=== PATIENT | male | born 1945 | race Caucasian/White ===

== ENCOUNTER 2020-12-08 08:56 | Outpatient (CLI) | payer MEDICARE, MEDICAID | END 2020-12-08 08:57 | disposition critical access hospital (66) | LOC: EMS 08:56 | DX: R10.31 Right lower quadrant pain (principal) | CPT/HCPCS: A0425; A0429 ==

== ENCOUNTER 2020-12-08 09:12 | Emergency (ER) | payer MEDICARE, MEDICAID ==
--- NOTE | 2020-12-08 09:38 | ED Physician Documentation ---
PD HPI ABD PAIN - Stated complaint Stated Complaint: GROIN PX - History obtained from History obtained from: Patient, EMS - History of Present Illness Timing - onset: How many days ago (report from caregivers that he has complained of right inguinal pain intermittently for days. No vomiting.) Timing - duration: Days (several days, up to a week.) Timing - details: Intermittant Quality: Cramping, Aching, Pain Location: RLQ (right inguinal area) Radiation: No: Right flank Worsened by: Moving, Position (bending and lifting). No: Breathing Associated symptoms: No: Fever, Nausea, Vomiting, Diarrhea Recently seen: Not recently seen Review of Systems Unable to obtain: Dementia (but able to answer questions in the moment.), Other (info through EMS from care facility) Constitutional: denies: Fever, Chills Cardiac: denies: Chest pain / pressure Respiratory: denies: Cough GI: denies: Abdominal Pain, Vomiting, Constipation, Diarrhea : denies: Dysuria PD PAST MEDICAL HISTORY - Past Medical History Cardiovascular: None Respiratory: None Neuro: Dementia - Present Medications Home Medications: Ambulatory Orders Medication Instructions Recorded Confirmed Docusate Sodium 100Mg Capsule 100 mg PO DAILY #20 cap 12/08/20 [Colace 100Mg Capsule] Meloxicam [Mobic] 7.5 mg PO BID PRN #20 tablet 12/08/20 - Allergies Allergies/Adverse Reactions: Allergies Allergy/AdvReac Type Severity Reaction Status Date / Time memantine [From Namenda] Allergy Unknown Verified 12/08/20 09:40 PD ED PE NORMAL - Vitals Vital signs reviewed: Yes - General General: No acute distress, Well developed/nourished. No: Alert and oriented X 3 (alert adn conversant. Oriented to person and place. Not time. ) - Neck Neck: Supple, no meningeal sign, No adenopathy - Cardiac Cardiac: RRR, No murmur - Respiratory Respiratory: Clear bilaterally - Abdomen Abdomen: Normal bowel sounds, Soft, Non distended, No organomegaly, Other (right inguinal tender. Hernia defect in inguinal canal. Protrusion with tightening abdomen. Reduces when relaxes. No feeling of incarceration. ) - Male Male : Other (mild fullness right scrotal area without tenderness. Normal lie of testicles. ) - Back Back: No CVA TTP - Derm Derm: Normal color, Warm and dry Results - Vitals Vitals: Vital Signs - 24 hr 12/08/20 12/08/20 09:36 10:02 Temperature 36.4 C L Heart Rate 74 78 Respiratory 16 19 Rate Blood Pressure 151/80 H 157/108 H O2 Saturation 99 99 Oxygen O2 Source Room air - Labs Labs: Laboratory Tests 12/08/20 12/08/20 12/08/20 09:55 09:55 09:55 WBC 7.3 RBC 3.95 L Hgb 12.6 L Hct 38.0 L MCV 96.2 H MCH 31.9 H MCHC 33.2 RDW 13.2 Plt Count 203 MPV 8.2 Neut # (Auto) 5.3 Lymph # (Auto) 1.2 L [place] # (Auto) 0.6 Eos # (Auto) 0.2 Baso # (Auto) 0.0 Absolute Nucleated RBC 0.00 Nucleated RBC % 0.0 Sodium 141 Potassium 3.8 Chloride 104 Carbon Dioxide 30 Anion Gap 7.0 BUN 14 Creatinine 1.0 Estimated GFR (MDRD) 72 L Glucose 88 Calcium 9.5 Total Bilirubin 0.7 AST 18 ALT 17 Alkaline Phosphatase 71 Total Protein 6.8 Albumin 4.0 Globulin 2.8 Albumin/Globulin Ratio 1.4 Lipase 48 Urine Color YELLOW Urine Clarity CLEAR Urine pH 7.0 Ur Specific [place] 1.015 Urine Protein NEGATIVE Urine Glucose (UA) NEGATIVE Urine Ketones NEGATIVE Urine Occult Blood NEGATIVE Urine Nitrite NEGATIVE Urine Bilirubin NEGATIVE Urine Urobilinogen 0.2 (NORMAL) Ur Leukocyte Esterase NEGATIVE Ur Microscopic Review NOT INDICATED Urine Culture Comments NOT INDICATED - Rads (name of study) abd/p[elvic CT Radiology: Prelim report reviewed (hydrocele right. No other acute noted. ), See rad report PD MEDICAL DECISION MAKING - ED course Complexity details: reviewed results (abd CT showing hydrocele. No report of hernia, though I think I see some hernia soft tissue mass right inguinal. No incarceration. ), considered differential (right inguinal tenderness and feeling of hernia with abd tightening. No incarceration. ), d/w patient Departure - Departure Disposition: 01 Home, Self Care Clinical Impression: Right inguinal pain Inguinal hernia Qualifiers: Obstruction and gangrene presence: without obstruction or gangrene Laterality: unilateral Recurrence: non-recurrent Qualified Code(s): K40.90 - Unilateral inguinal hernia, without obstruction or gangrene, not specified as recurrent Condition: Stable Record reviewed to determine appropriate education?: Yes Instructions: ED Hernia Inguinal Follow-Up: Lori Mcclure MD [Provider Admit Priv/Credential] - Fantasma Chavez MD [Provider Admit Priv/Credential] - Prescriptions: Docusate Sodium 100Mg Capsule [Colace 100Mg Capsule] 100 mg PO DAILY #20 cap Meloxicam [Mobic] 7.5 mg PO BID PRN #20 tablet PRN Reason: Pain Comments: Your tenderness and pain seem to relate to an inguinal hernia. It is not trapped nor causing any obstruction. CT scan did not show any other acute abnormalities to account for hurting. Incidentally there is a small fluid collection around the testicle but that is not the area that you are hurting. Typically we use a stool softener to ensure easy stool without having to push. Avoid heavy lifting. Anti-inflammatory twice daily for a week to reduce any inflammation/pain associated with this right now. Follow-up with local surgeon for discussion of repair of the hernia, call for an appointment. [place] Discharge Date/Time: 12/08/20 15:47
[2020-12-08 10:03] VITALS: BP 157/108
[2020-12-08 10:07] LABS: BASOPHILS % (AUTO) 0.4 %; EOSINOPHILS # (AUTO) 0.2 10^3/uL (0.0-0.7); EOSINOPHILS % (AUTO) 3.3 %; HGB - HEMOGLOBIN 12.6 g/dL (14.0-18.0); LYMPHOCYTES # (AUTO) 1.2 10^3/uL (1.5-3.5); LYMPHOCYTES % (AUTO) 15.7 %; MEAN CORPUSCULAR HEMOGLOBIN 31.9 pg (27.0-31.0); MEAN CORPUSCULAR HGB CONC 33.2 g/dL (32.0-36.0); MEAN CORPUSCULAR VOLUME 96.2 fL (80.0-94.0); MEAN PLATELET VOLUME 8.2 fL (7.4-11.4); MONOCYTES # (AUTO) 0.6 10^3/uL (0.0-1.0); MONOCYTES % (AUTO) 8.3 %; NEUTROPHILS # (AUTO) 5.3 10^3/uL (1.5-6.6); NEUTROPHILS % (AUTO) 71.6 %; PLT - PLATELET COUNT 203 10^3/uL (130-450); RED BLOOD COUNT 3.95 10^6/uL (4.70-6.10); RED CELL DISTRIBUTION WIDTH 13.2 % (12.0-15.0); WHITE BLOOD COUNT 7.3 x10^3/uL (4.8-10.8)
[2020-12-08 10:08] LABS: BILIRUBIN,URINE NEGATIVE (NEGATIVE); CLARITY,URINE CLEAR (CLEAR); GLUCOSE, URINE (UA) NEGATIVE (NEGATIVE); KETONES,URINE (UA) NEGATIVE (NEGATIVE); LEUKOCYTE ESTERASE, URINE NEGATIVE (NEGATIVE); NITRITE,URINE NEGATIVE (NEGATIVE); OCCULT BLOOD,URINE NEGATIVE (NEGATIVE); PROTEIN,URINE NEGATIVE (NEGATIVE); UROBILINOGEN,URINE 0.2 (NORMAL) E.U./dL (NORMAL)
[2020-12-08 10:21] LABS: ALBUMIN/GLOBULIN RATIO 1.4 (1.0-2.2); BILIRUBIN,TOTAL 0.7 mg/dL (0.2-1.0); CALCIUM 9.5 mg/dL (8.5-10.3); POTASSIUM 3.8 mmol/L (3.5-5.0); TOTAL PROTEIN 6.8 g/dL (6.7-8.2)
[2020-12-08] MEDS ORDERED: KETOROLAC 30 MG/ML VIAL IVP STA (10:30)
[2020-12-08] MEDS ORDERED: IOVERSOL 320 100 ML VIAL IVP ONE ×2 (10:56→11:24)
--- NOTE | 2020-12-08 12:01 | CT Report ---
PROCEDURE: Abdomen/Pelvis W INDICATIONS: lower abd pain for 2-3 days CONTRAST: IV CONTRAST: Optiray 320 ml: 100 PO CONTRAST: *NO PO CONTRAST TECHNIQUE: After the administration of IV contrast, 5 mm thick sections acquired from the diaphragms to the symp hysis. 5 mm thick coronal and sagittal reformats were acquired. For radiation dose reduction, the f ollowing was used: automated exposure control, adjustment of mA and/or kV according to patient size. COMPARISON: None. FINDINGS: Image quality: Diagnostic. Respiratory motion is noted.. ABDOMEN: Lung bases: Dependent atelectasis in posterior aspect of bilateral lung blake are seen. Heart size i s normal. Moderate atherosclerotic calcifications are seen in coronary vessels and descending thoraci c aorta. Solid organs: Liver and spleen are normal in size and enhancement. Gallbladder is within normal aponte its. Biliary system is non dilated. Pancreas is normal in size. 2 x 2 CM hypodense area involving pa ncreatic tail is seen series 13 image 33 and series 6 image 24. No peripancreatic fat stranding or fl uid collection. Rest of the pancreas enhances normally. No adrenal nodules. Kidneys demonstrate norm al size and enhancement, without hydronephrosis. Peritoneum and bowel: There is no evidence of bowel obstruction. No gross abnormal bowel wall thicken ing or mesenteric fat stranding. No free fluid or free air. Colonic diverticulosis is seen, no CT keyla dence of acute diverticulitis. Nodes and vessels: No retroperitoneal or mesenteric adenopathy by size criteria. Aorta and inferior vena cava are normal in size. Miscellaneous: No ventral hernias. PELVIS: Genitourinary: Bladder wall thickness is normal. Moderate size right hydrocele is seen. No gross abn ormality is seen in peritoneal space. Miscellaneous: No inguinal hernias or adenopathy. Bones: No suspicious bony lesions. No vertebral body compression fractures. Post fusion changes ar e noted in lower lumbar spine at L4-S1 levels. Grade 1 anterolisthesis of L5 on S1 is seen. IMPRESSION: 1. No bowel obstruction or abnormal bowel wall thickening. Colonic diverticulosis without evidence of acute diverticulitis. No abscess collection. No free fluid or free air. 2. Moderate right-sided hydrocele. If indicated, ultrasound of scrotum can be done for further evalua tion. 3. 2 cm hypodense lesion involving pancreatic tail region which could represent pancreatic cyst or IP MN. Dedicated nonemergent MRI of abdomen without and with contrast can be done for further evaluation of this region. Reviewed by: Camilo Rueda MD on 12/08/2020 12:00 PM PDT Approved by: Camilo Rueda MD on 12/08/2020 12:00 PM PDT Station ID: [id number]
== END 2020-12-08 15:47 | disposition home or self-care (01) ==
LOC: ED 09:12
DX: K40.90 Unilateral inguinal hernia, without obstruction or gangrene, not specified as recurrent (principal); N43.3 Hydrocele, unspecified; F03.90 Unspecified dementia, unspecified severity, without behavioral disturbance, psychotic disturbance, mood disturbance, and anxiety
CPT/HCPCS: 36415; 74177; 80053; 81003; 83690; 85025; 96374; 99284; Q9967; 81001; 87086

== ENCOUNTER 2021-01-27 11:05 | Outpatient (CLI) | payer MEDICARE, MEDICAID | END 2021-01-27 11:06 | disposition critical access hospital (66) | LOC: EMS 11:05 | DX: R10.2 Pelvic and perineal pain (principal) | CPT/HCPCS: A0425; A0429 ==

== ENCOUNTER 2021-01-27 11:24 | Emergency (ER) | payer MEDICARE, MEDICAID ==
[2021-01-27 11:55] LABS: BILIRUBIN,URINE NEGATIVE (NEGATIVE); CLARITY,URINE CLEAR (CLEAR); GLUCOSE, URINE (UA) NEGATIVE (NEGATIVE); KETONES,URINE (UA) NEGATIVE (NEGATIVE); LEUKOCYTE ESTERASE, URINE NEGATIVE (NEGATIVE); NITRITE,URINE NEGATIVE (NEGATIVE); OCCULT BLOOD,URINE NEGATIVE (NEGATIVE); PH,URINE 7.5 PH (5.0-7.5); PROTEIN,URINE NEGATIVE (NEGATIVE); UROBILINOGEN,URINE 0.2 (NORMAL) E.U./dL (NORMAL)
[2021-01-27 12:03] LABS: BASOPHILS % (AUTO) 0.5 %; EOSINOPHILS # (AUTO) 0.3 10^3/uL (0.0-0.7); EOSINOPHILS % (AUTO) 3.3 %; HCT - HEMATOCRIT 38.4 % (42.0-52.0); HGB - HEMOGLOBIN 12.7 g/dL (14.0-18.0); LYMPHOCYTES # (AUTO) 1.3 10^3/uL (1.5-3.5); LYMPHOCYTES % (AUTO) 16.9 %; MEAN CORPUSCULAR HEMOGLOBIN 32.2 pg (27.0-31.0); MEAN CORPUSCULAR HGB CONC 33.1 g/dL (32.0-36.0); MEAN CORPUSCULAR VOLUME 97.5 fL (80.0-94.0); MEAN PLATELET VOLUME 8.9 fL (7.4-11.4); MONOCYTES # (AUTO) 0.8 10^3/uL (0.0-1.0); NEUTROPHILS # (AUTO) 5.2 10^3/uL (1.5-6.6); PLT - PLATELET COUNT 205 10^3/uL (130-450); RED BLOOD COUNT 3.94 10^6/uL (4.70-6.10); RED CELL DISTRIBUTION WIDTH 12.7 % (12.0-15.0); WHITE BLOOD COUNT 7.5 x10^3/uL (4.8-10.8)
--- NOTE | 2021-01-27 12:11 | ED Physician Documentation ---
PD HPI ABD PAIN - Stated complaint Stated Complaint: ABD PX - Chief complaint Chief Complaint: Abd Pain - History obtained from History obtained from: Patient - Additional information Additional information: 76-year-old gentleman with dementia presents by ambulance from memory care for complaints of inguinal pain. He is a vague historian, does not know how long its been going on. Denies vomiting or changes in bowel movements. Seen for this by Dr. Cardona in November. Lab work and CT negative. [place] like hernia on exam that was reduced. Review of Systems Constitutional: reports: Reviewed and negative Eyes: reports: Reviewed and negative Ears: reports: Reviewed and negative Nose: reports: Reviewed and negative Throat: reports: Reviewed and negative Cardiac: reports: Reviewed and negative Respiratory: reports: Reviewed and negative PD PAST MEDICAL HISTORY - Past Medical History Cardiovascular: None Respiratory: None Neuro: Dementia Endocrine/Autoimmune: HyPOthyroidism GI: GERD Psych: Depression - Present Medications Home Medications: Ambulatory Orders Medication Instructions Recorded Confirmed Docusate Sodium 100Mg Capsule 100 mg PO DAILY #20 cap 12/08/20 [Colace 100Mg Capsule] Meloxicam [Mobic] 7.5 mg PO BID PRN #20 tablet 12/08/20 - Allergies Allergies/Adverse Reactions: Allergies Allergy/AdvReac Type Severity Reaction Status Date / Time memantine [From Namenda] Allergy Unknown Verified 01/27/21 11:52 - Social History Does the pt smoke?: No Smoking Status: Never smoker PD ED PE NORMAL - Vitals Vital signs reviewed: Yes - General General: No acute distress, Well developed/nourished - Abdomen Abdomen: Normal bowel sounds, Soft, Other (No abdominal tenderness, no surgical signs. There is a hernia defect on the right but without bowel in it. Nothing incarcerated or strangulated appearing and no skin changes. No masses in the scrotum.) - Neuro Neuro: Other (He is alert and oriented to person but not place or time) Eye Opening: Spontaneous Motor: Obeys Commands Results - Vitals Vitals: Vital Signs - 24 hr 01/27/21 11:35 Temperature 36.7 C Heart Rate 65 Respiratory 16 Rate Blood Pressure 140/79 H O2 Saturation 100 Oxygen O2 Source Room air - Labs Labs: Laboratory Tests 01/27/21 01/27/21 11:43 11:55 WBC 7.5 RBC 3.94 L Hgb 12.7 L Hct 38.4 L MCV 97.5 H MCH 32.2 H MCHC 33.1 RDW 12.7 Plt Count 205 MPV 8.9 Neut # (Auto) 5.2 Lymph # (Auto) 1.3 L [place] # (Auto) 0.8 Eos # (Auto) 0.3 Baso # (Auto) 0.0 Absolute Nucleated RBC 0.00 Nucleated RBC % 0.0 Urine Color YELLOW Urine Clarity CLEAR Urine pH 7.5 Ur Specific [place] 1.010 Urine Protein NEGATIVE Urine Glucose (UA) NEGATIVE Urine Ketones NEGATIVE Urine Occult Blood NEGATIVE Urine Nitrite NEGATIVE Urine Bilirubin NEGATIVE Urine Urobilinogen 0.2 (NORMAL) Ur Leukocyte Esterase NEGATIVE Ur Microscopic Review NOT INDICATED Urine Culture Comments NOT INDICATED PD MEDICAL DECISION MAKING - ED course Complexity details: reviewed old records, other (Tried to call POA using number on the chart, no answer) ED course: 76-year-old gentleman with recurrent inguinal pain likely due to hernia, but no evidence of incarceration or strangulation. Frankly no bowel in it at this brayan e. No diffuse abdominal tenderness. Labs are unremarkable. Departure - Departure Disposition: 01 Home, Self Care Clinical Impression: Inguinal hernia Qualifiers: Obstruction and gangrene presence: without obstruction or gangrene Laterality: unilateral Recurrence: recurrent Qualified Code(s): K40.91 - Unilateral inguinal hernia, without obstruction or gangrene, recurrent Condition: Good Record reviewed to determine appropriate education?: Yes Instructions: ED Hernia Inguinal Follow-Up: Guille Turk MD [Provider Admit Priv/Credential] - Comments: While he seems to have an inguinal hernia, it is not incarcerated or tender or with bowel in it at this time. He can, depending on goals of care and patient and family wishes, follow-up with a general surgeon as an outpatient. Return for new or recurrent complaints.
[2021-01-27 12:15] LABS: ALBUMIN 4.1 g/dL (3.2-5.5); ALBUMIN/GLOBULIN RATIO 1.5 (1.0-2.2); BILIRUBIN,TOTAL 0.6 mg/dL (0.2-1.0); CALCIUM 9.5 mg/dL (8.5-10.3); TOTAL PROTEIN 6.8 g/dL (6.7-8.2)
[2021-01-27 12:35] VITALS: BP 159/80
== END 2021-01-27 13:06 | disposition home or self-care (01) ==
LOC: EDUNIT# → ED 11:24
DX: K40.91 Unilateral inguinal hernia, without obstruction or gangrene, recurrent (principal)
CPT/HCPCS: 36415; 80053; 81001; 81003; 83690; 85025; 87086; 99282; 99283

== ENCOUNTER 2021-09-13 10:36 | Outpatient (CLI) | payer MEDICARE, MEDICAID | END 2021-09-13 10:37 | disposition critical access hospital (66) | LOC: EMS 10:36 | DX: M79.89 Other specified soft tissue disorders (principal) | CPT/HCPCS: A0425; A0429 ==

== ENCOUNTER 2021-09-13 10:49 | Emergency (ER) | payer MEDICARE, MEDICAID ==
--- NOTE | 2021-09-13 11:04 | ED Physician Documentation ---
History of Present Illness - Stated complaint Stated Complaint: R THUMB INJ - History obtained from History obtained from: Patient, EMS - Additonal information Additional information: The patient is brought to the emergency department by EMS for chief complaint of right hand pain. Per EMS, the staff noticed while the patient was at the dining room that he had an area of some swelling and bruising at the base of his right hand. The patient has a history of dementia and lives in a memory care facility, and while he can report that he is having pain there, he does not remember how he may have been injured. There was no witnessed fall or injury. The patient was ambulatory upon EMS arrival and without other complaints. In route, the medics report that the patient would occasionally complain of some right-sided abdominal pain, but that this was only intermittent and in between, he seemed comfortable. No other complaints at this time. Medics state that per staff, the patient was at mental and physical baseline upon their arrival. Review of Systems Ten Systems: 10 systems reviewed and negative Constitutional: reports: Reviewed and negative Eyes: reports: Reviewed and negative Ears: reports: Reviewed and negative Nose: reports: Reviewed and negative Throat: reports: Reviewed and negative Cardiac: reports: Reviewed and negative Respiratory: reports: Reviewed and negative GI: reports: Reviewed and negative : reports: Reviewed and negative Skin: reports: Other (Contusion) Musculoskeletal: reports: Extremity pain, Extremity swelling Neurologic: reports: Reviewed and negative Psychiatric: reports: Reviewed and negative Endocrine: reports: Reviewed and negative Immunocompromised: reports: Reviewed and negative PD PAST MEDICAL HISTORY - Past Medical History Cardiovascular: None Respiratory: None Neuro: Dementia Endocrine/Autoimmune: HyPOthyroidism GI: GERD Psych: Depression - Present Medications Home Medications: Ambulatory Orders Medication Instructions Recorded Confirmed Docusate Sodium 100Mg Capsule 100 mg PO DAILY #20 cap 12/08/20 09/13/21 [Colace 100Mg Capsule] Meloxicam [Mobic] 7.5 mg PO BID PRN #20 tablet 12/08/20 09/13/21 Acetaminophen [Acetaminophen Extra 500 mg PO DAILY PRN 09/13/21 09/13/21 Strength] Flunisolide 2 spray JAYY DAILY 09/13/21 09/13/21 Fluticasone Propionate [Flovent 1 puffs INH DAILY 09/13/21 09/13/21 Diskus] LORazepam [Ativan] 0.5 mg PO Q6HR PRN 09/13/21 09/13/21 Lansoprazole [Prevacid] 30 mg PO DAILY 09/13/21 09/13/21 Levothyroxine Sodium 150 mcg PO DAILY 09/13/21 09/13/21 [Levothyroxine] Mirtazapine 7.5 mg PO DAILY 09/13/21 09/13/21 OLANZapine [Zyprexa] 2.5 mg PO DAILY PRN 09/13/21 09/13/21 Polyethylene Glycol 8000 500 mg PO DAILY PRN 09/13/21 09/13/21 [Polyethylene Glycol] QUEtiapine [SEROquel] 50 mg PO DAILY 09/13/21 09/13/21 Tamsulosin [Flomax] 0.4 mg PO DAILY 09/13/21 09/13/21 Zolpidem Tartrate [Ambien] 10 mg PO HS PRN 09/13/21 09/13/21 allopurinoL [Zyloprim] 100 mg PO DAILY 09/13/21 09/13/21 busPIRone [Buspar] 5 mg PO DAILY 09/13/21 09/13/21 oxyCODONE [Roxicodone] 5 mg PO Q4HR PRN 09/13/21 09/13/21 - Allergies Allergies/Adverse Reactions: Allergies Allergy/AdvReac Type Severity Reaction Status Date / Time memantine [From Namenda] Allergy Unknown Verified 09/13/21 11:00 - Social History Does the pt smoke?: No Smoking Status: Never smoker PD ED PE NORMAL - Vitals Vital signs reviewed: Yes - General General: No acute distress - HEENT HEENT: Atraumatic, PERRL, EOMI, Moist mucous membranes - Neck Neck: Supple, no meningeal sign - Cardiac Cardiac: RRR, No murmur, Strong equal pulses - Respiratory Respiratory: No respiratory distress, Clear bilaterally - Abdomen Abdomen: Soft, Non tender, Non distended - Back Back: No spinal TTP - Derm Derm: Normal color, Warm and dry, No rash - Extremities Extremities: No deformity, No tenderness to palpate (Bones of all other extremities and the remainder of the right upper extremity are without tenderness, deformity, or overlying edema.), Other (No generalized edema. The patient has Mild palmar edema with moderate contusion over his first carpometacarpal joint on the right. Full range of motion of the wrist, first MCP, and first IP joints without pain or difficulty.) - Neuro Neuro: Alert and oriented X 3, medical records coder 2-12 intact, No motor deficit, No sensory deficit, Normal speech - Psych Psych: Normal mood, Normal affect Results - Vitals Vitals: Vital Signs - 24 hr 09/13/21 09/13/21 10:57 12:27 Temperature 36.4 C L 36.6 C Heart Rate 80 74 Respiratory 16 16 Rate Blood Pressure 129/57 L 140/80 H O2 Saturation 98 98 Oxygen O2 Source Room air - Rads (name of study) R hand XR Radiology: Final report received, EMP read indepedently, See rad report (DJD 1st [facility]; no fx) PD MEDICAL DECISION MAKING - ED course Complexity details: reviewed results, re-evaluated patient, considered d ifferential, d/w patient ED course: Patient was worked up with a right hand x-ray, which showed arthritis at the joint in question, but no fracture. The pt was otherwise stable and well- appearing, and I felt he was appropriate for d/c. We have discussed the usual indications for return. Departure - Departure Disposition: 01 Home, Self Care Clinical Impression: Arthritis of carpometacarpal (CMC) joint of right thumb Condition: Stable Instructions: ED Degenerative Joint Disease Comments: The x-ray does not show any breaks of any of the bones of the right hand. Mr. Pastor does have severe arthritis of the joint at the base of his thumb and this is most likely the cause of the swelling. Remainder of the physical exam does not reveal any concerning findings. Discharge Date/Time: 09/13/21 12:28
--- NOTE | 2021-09-13 11:22 | XRAY Report ---
PROCEDURE: Hand 3 View RT INDICATIONS: injury/pain/swelling/1st [facility] TECHNIQUE: 3 views of the hand acquired. COMPARISON: None. FINDINGS: Bones: No acute fractures or dislocations. No suspicious bony lesions. There is severe joint space narrowing at the first carpometacarpal joint with subchondral sclerosis and marginal osteophyte forma tion as well as remodeling of the articular surfaces. Mild radial subluxation of the first metacarpal base is likely related to degenerative changes, although superimposed acute injury is not excluded. There is hyperextension of the first metacarpophalangeal joint that is likely chronic. The fifth dist al interphalangeal joint is flexed throughout the exam. Soft tissues: Calcifications are seen in the region of the triangular fibrocartilage complex, consist ent with chondrocalcinosis. Calcifications are also noted surrounding the first carpometacarpal joint . There is soft tissue edema at the base of the thumb. HC surgical anchor is seen dorsal to the fifth proximal phalangeal base. IMPRESSION: 1.Severe first carpometacarpal osteoarthrosis with remodeling of the articular surfaces. Mild radial subluxation of the first metacarpal base is likely secondary to degenerative changes, but acute injur y is not excluded. Mild overlying soft tissue edema is present. 2.Hyperextension first carpometacarpal joint is likely chronic. 3.Postsurgical changes at the base of the fifth distal phalanx with fixed flexion at the fifth distal interphalangeal joint. 4.Chondrocalcinosis. Reviewed by: Carson Christensen MD on 09/13/2021 11:21 AM PDT Approved by: Carson Christensen MD on 09/13/2021 11:21 AM PDT Station ID: [id number]
[2021-09-13 12:29] VITALS: BP 140/80
== END 2021-09-13 12:28 | disposition home or self-care (01) ==
LOC: EDUNIT# → ED 10:49
DX: M19.041 Primary osteoarthritis, right hand (principal); F03.90 Unspecified dementia, unspecified severity, without behavioral disturbance, psychotic disturbance, mood disturbance, and anxiety; R10.9 Unspecified abdominal pain
CPT/HCPCS: 99283